=== PATIENT | male | born 1950 | race Caucasian/White ===

== ENCOUNTER 2018-07-25 09:32 | Day surgery (SDC) | payer BC, MEDICARE ==
[~2018-07-25 09:32] MED LIST: ACETAZOLAMIDE 250 MG TABLET PO ONE; Ak-Dilate OPHTHALMIC*** 1.065 ML, Cyclogyl 1% OPHTH SOL 5 ML 1.065 ML, GATIFLOXACIN 0.5... OP ONE; Lactated Ringers 1,000 ML IV ONE; Lactated Ringers 1,000 ML IV SCH; TETRACAINE 0.5% STERI-UNIT SOL OP ONE; Zofran 4 MG/2 ML VIAL IV PRN
[2018-07-25] MEDS ORDERED: Versed 2 MG/2 ML Injection IV ONE (09:33)
[2018-07-25] MEDS ORDERED: DIPRIVAN 200 MG/20 ML IV ONE ×2 (09:33)
[2018-07-25] MEDS ORDERED: BETADINE 5% OPHTHALMIC 30 ML OP ONE (10:00)
[2018-07-25] MEDS ORDERED: BSS 500 ML, Fortaz/Tazicef 1 GM** 0.2 G IO ONE ×2 (10:00)
[2018-07-25] MEDS ORDERED: LIDOCAINE HCL 1% AMPUL 5 ML IJ ONE (10:00)
[2018-07-25] MEDS ORDERED: Epinephrine Preservative Free 1 MG/ML INTRAOP ONE (10:00)
[2018-07-25 11:46] VITALS: O2SAT 91
[2018-07-25 12:14] VITALS: BP 143/78; PULSE 52
--- NOTE | 2018-07-25 15:25 | OP ---
DATE/TIME OF OPERATION: 07/25/2018 1045 TIME DICTATED: 1146 PREOPERATIVE DIAGNOSIS: Senile cataract of left eye. POSTOPERATIVE DIAGNOSIS: Senile cataract of left eye. SURGEON: Chapito Brown MD WATER RESOURCE ENGINEER: None. OPERATION: Cataract extraction of left eye with an intraocular lens implant. STANDARD __X___ COMPLEX ANESTHESIA: MAC. ___X___ Monitored anesthesia care in combination with topical and intra-cameral anesthesia (because of the established specific risk of reflux, arrhythmias, or an anxiety attack associated with ocular manipulation as well as difficulty of the make up operator to manage such potentially catastrophic events while simultaneously attempting to complete the surgical procedure, it was deemed necessary for the patient's safety to have an anesthesiologist or a nurse printing estimator present during the procedure whenever possible. The anesthesiologist or the nurse printing estimator was utilized to monitor and regulate the intravenous sedation of the patient, so the patient was cooperative, relaxed, and comfortable). Topical anesthesia using Tetracaine eye drops together with intra cameral anesthesia using Lidocaine 1% MPF. The nurse was utilized to monitor the patient. ANESTHESIA PROVIDER: Naren Jones CRNA. COMPLICATIONS: None. BLOOD LOSS: None. INDICATIONS: The patient is undergoing cataract surgery in the hopes of eliminating the visual complaints and difficulty. PROCEDURE: After arriving at the facility's outpatient surgery area, an IV was started; the patient was given 5 mg of p.o. Versed. (If an anesthesia provider was not monitoring the patient) The patient was then given topical anesthetic Tetracaine eye drops. A cotton pellet was soaked into a solution of a combination of Zymaxid 0.5%, Ravi-Synephrine 2.5% and Ocufen (other drops might have been substituted referenced in the patient's record). The pellet was inserted by the RN into the lower conjunctival cul-de-sac with a sterile forceps and left for 20 minutes. The pellet was then removed by the RN with a sterile forceps before taking the patient to the operating room. The preoperative area nurse identified the patient and marked the correct eye to be operated on. I identified the correct eye to be operated on and marked it appropriately in the outpatient surgery area. The patient was then taken into the operating room. Tetracaine eye drops were installed again in the correct eye. The eyelids and the lashes and the lid margins were scrubbed with Betadine solution. One drop of the diluted Betadine solution was placed in the conjunctival cul-de-sac for 45 seconds and then was irrigated. A drop of Tetracaine Gel was placed in the conjunctival cul-de-sac. The patient's forehead was taped to secure it during the procedure. The patient was monitored. The patient was then draped in the usual way for this procedure. An eye speculum was used to separate the eyelids. The eye was then fixated and a temporal 2.5 mm incision was made in the clear cornea temporally at the limbus. Through the incision, 0.25 cc of 1% non-preserved lidocaine was injected into the anterior chamber for intracameral anesthesia. The anterior chamber was then filled with viscoelastic. The pupil was small. I felt that it would be safer to mechanically dilate the pupil. A Malyugin ring was used at this point which dilated the pupil. That was removed at the end of the procedure prior to aspiration of the viscoelastic from the anterior chamber and posterior to the intraocular lens implant. The cataract had a great amount of cortical changes. That rendered seeing the anterior capsule difficult for a safe performance of an anterior capsulotomy. I injected an air bubble into the anterior chamber. I then injected 1 ML of vision blue solution into the anterior chamber. The vision blue solution was irrigated from the anterior chamber after 30 seconds. The anterior capsule was stained which facilitated performing the anterior capsulotomy safely. After that was completed, a cystotome was introduced into the anterior chamber and a round anterior capsulotomy was performed. The capsule was removed by a forceps. Hydrodissection was next carried utilizing a 25-gauge cannula and balanced salt solution to delineate the cortical material from the capsule and the nucleus from the cortical material. The nucleus was rotated freely into the capsular bag with no difficulty. The phaco tip of the [facility] Phacoemulsifier was introduced into the anterior chamber and two grooves were made into the nucleus 90 degrees apart. Using two spatulas resulted into the nucleus being fractured into four quadrants. The phaco tip was then used to remove each quadrant of the nucleus. Viscoelastic was used during this process to protect the corneal endothelium. Once the entire nucleus was removed, the phaco tip then was removed and the irrigation tip was introduced into the eye and the cortex was removed. The posterior capsule was polished. It was noticed that there was a tear into the posterior capsule with few vitreous strands into the pupil plan. An anterior vitrectomy was performed. A 17.00 diopter, [id number], posterior chamber lens implant, was inspected and found to be grossly normal. The implant was inserted into the implant injector cartridge; Viscoelastic again was introduced into the anterior chamber, which filled the capsular bag. The implant injector's cartridge tip was placed at the limbal wound and the posterior chamber implant was released into the capsular bag and rotated appropriately. The implant was found to be into the capsular bag and it was centered. __X__ 0.2 ml of Tri-Moxi was introduced via 27 gauge cannula into the vitreous cavity through the ciliary processes. Viscoelastic was aspirated from the anterior chamber and posterior to the intraocular lens implant from the capsular bag using the irrigating tip. The anterior chamber was irrigated and filled with 5 cc antibiotic solution (500 cc of BSS plus 2 ml of Fortaz 100 mg/ml) ( if patient was not allergic to the medication). The lips of the corneal incision were hydrated using BSS solution. The anterior chamber was checked and found to be water tight. One drop each of antibiotic, steroid and NSAID drops (refer to chart for drops used) were placed in the conjunctival cul-de-sac of the operated eye. Patient tolerated the procedure quite well and left the operating room in satisfactory condition. DISCHARGE SUMMARY: The patient was released in stable condition. The patient and those with the patient were given an instruction sheet as of how to care for the eye after surgery as well as counseling on any abnormal laboratory studies by the postoperative RN. The patient was also given an appointment card for follow-up in the office and is to call immediately for any difficulties including but not limited to pain in the eye, decreased vision, discharge from the eye, headache and or fever. DISCHARGE DIAGNOSIS: Pseudophakia of left eye.
== END 2018-07-25 12:15 | disposition home or self-care (01) ==
LOC: SDC 09:32
PROVIDERS: ATTEND Ophthalmology
DX: H25.9 Unspecified age-related cataract (principal); I10 Essential (primary) hypertension; E78.00 Pure hypercholesterolemia, unspecified; F32.9 Major depressive disorder, single episode, unspecified
CPT/HCPCS: 94250; C1780; J0171; J2250; J2704; A9270-GY

== ENCOUNTER 2022-12-15 05:46 | Day surgery (SDC) | payer BC, MEDICARE ==
[2022-12-15] MEDS ORDERED: Lactated Ringers 1,000 ML IV ONE (06:10)
[2022-12-15] MEDS ORDERED: Lactated Ringers 1,000 ML IV SCH (07:00)
[2022-12-15] MEDS ORDERED: Xopenex 1.25 MG/0.5 ML UD NEBULE IH ONE (07:07)
[2022-12-15] MEDS ORDERED: Sodium Chloride 3 ML UD NEBULES IH ONE (07:07)
[2022-12-15 07:17] LABS: ANION GAP 9.4 MEQ/L (5-15); BLOOD UREA NITROGEN 10 mg/dL (9-20); CHLORIDE 104 mmol/L (98-107); Calcium 8.1 mg/dL (8.4-10.2); Carbon Dioxide 31 mmol/L (22-30); Creatinine 1 0.67 mg/dL (0.66-1.25); EST GLOMERULAR FILTRATION RATE > 60.0 ML/MIN; Glucose 134 mg/dL (74-106); NT PRO BNPII 110 pg/mL (<300); Potassium 3.9 mmol/L (3.5-5.1); SODIUM 140 mmol/L (137-145)
[2022-12-15] MEDS ORDERED: Xylocaine-Mpf 2% 5 Ml Vial ONE (07:56)
[2022-12-15] MEDS ORDERED: DIPRIVAN 200 MG/20 ML IV ONE (07:56)
[2022-12-15] MEDS ORDERED: Ketamine HCl 50 MG/ML ONE (07:57)
[2022-12-15] MEDS ORDERED: Versed 2 MG/2 ML Injection ONE (07:57)
[2022-12-15 09:24] VITALS: O2SAT 92
[2022-12-15 09:31] VITALS: BP 144/72; PULSE 74
--- NOTE | 2022-12-15 10:28 | OP ---
SURGERY DATE/TIME: 12/15/2022 0759 PREOPERATIVE DIAGNOSIS: Change in bowel habits. POSTOPERATIVE DIAGNOSES: 1) Normal colon. 2) Diverticulosis. PROCEDURE: Diagnostic colonoscopy. SURGEON: Llody Jenkins M.D. ANESTHESIA: MAC by Zane Balderas CRNA. ESTIMATED BLOOD LOSS: None. SPECIMENS: None. DESCRIPTION OF PROCEDURE: After informed written consent was obtained, the patient was taken to the endoscopy suite. Anesthesia was titrated to desired level of consciousness. Digital rectal exam showed normal sphincter tone and no internal lesions. The scope was inserted into the rectum and sequentially the entire colonic mucosa was traversed. The level of cecum was reached and verified with direct visualization of the ileocecal valve. Upon withdrawal there was scattered diverticula but no other mucosal abnormalities. Prep was noted to be fair. Prior to withdrawal retroflexion was performed and showed no internal lesions. The scope was removed. The patient was transferred to the recovery room in good condition.
== END 2022-12-15 09:33 | disposition home or self-care (01) ==
LOC: SDC 05:46
PROVIDERS: ATTEND Family Medicine
DX: K57.30 Diverticulosis of large intestine without perforation or abscess without bleeding (principal); R19.4 Change in bowel habit; I10 Essential (primary) hypertension; Z86.79 Personal history of other diseases of the circulatory system; J98.4 Other disorders of lung; Z79.899 Other long term (current) drug therapy
CPT/HCPCS: 36415; 80048; 83880; 93005; 99100; J2250; J2704; J7614; A9270-GY

== ENCOUNTER 2023-12-17 23:59 | Emergency (ER) | payer BC, MEDICARE ==
[2023-12-18 00:21] VITALS: RESP 22; TEMP 97.9
--- NOTE | 2023-12-18 00:30 | ERPHSYRPT ---
- History of Present Illness Time Seen by Provider: 12/18/23 00:18 Source: patient Exam Limitations: no limitations Patient Subjective Stated Complaint: pt states lower back pain for the past 3 days Triage Nursing Assessment: pt came into via wheelchair; pt transfer to cot per self; axo x3; c/o back pain; pt states 10/10 pain to lower back; good ROM to back; no respiratory distress; skin PDW; hypertensive Physician History: The patient, with a history of two back surgeries at L5 and S1, presents with severe lower back pain. The pain is located above the site of the previous surgeries and feels like nerve pain. The patient denies any new numbness or tingling in the legs, but reports a chronic numbness on the left side of his foot. The patient's pain has been managed with a fentanyl patch, which he feels is no longer effective. He reports withdrawal symptoms if the patch is not changed every three days. The patient's pain has worsened over the past week, with a significant increase in pain today, causing difficulty in movement. The patient denies any recent activities that may have exacerbated the pain. Timing/Duration: week(s) (1), worse Quality: radiating, sharp, stabbing, throbbing Back Pain Location: lumbar spine Back Pain Radiation: lower legs, feet Severity of Pain-Max: severe Severity of Pain-Current: severe Modifying Factors: Worsens With: movement Associated Symptoms: numbness in legs/feet, tingling in legs/feet, lower back pain, muscle spasms, No fever, No chills, No urinary incontinence, No loss of bowel control, No problems urinating, No weakness Previous symptoms: same symptoms as today Allergies/Adverse Reactions: adhesive tape Adverse Reaction (Unknown, Verified 12/18/23 00:07) Rash Home Medications: Fentanyl 75Mcg Patch [Duragesic 75 MCG Patch] 75 mcg TOP Q3D 02/13/12 [History] Simvastatin 40 mg [Zocor 40 mg] 40 mg PO DAILY 02/13/12 [History] lisinopriL [Zestril] 10 mg PO DAILY 07/17/18 [History] Albuterol 8 gm Mdi Hfa [Ventolin Hfa MDI] 1 puff IH QID PRN 11/24/22 [History] Desonide 1 dose TOP BID 11/24/22 [History] Fluticasone/Salmeterol [Advair 250-50 Diskus] 1 puff IH DAILY 11/24/22 [History] Furosemide 40 mg [Lasix 40 MG] 1 tablet PO DAILY 11/24/22 [History] Tiotropium Dows Inhaler [Spiriva 18 Mcg/Cap Inhaler] 2 puffs IH DAILY 11/24/22 [History] Aspirin EC 81 mg [Ecotrin 81 mg] 81 mg PO DAILY 12/18/23 [History] Venlafaxine HCl ER 75 mg [Effexor XR 75 MG] 150 mg PO DAILY 12/18/23 [History] Hx Tetanus, Diphtheria Vaccination/Date Given: Yes Hx Influenza Vaccination/Date Given: Yes Hx Pneumococcal Vaccination/Date Given: Yes Immunizations Up to Date: No Travel Risk - International Travel Have you traveled outside of the country in past 3 weeks: No - Emerging Infectious Disease Are you exhibiting symptoms associated with any current EIDs: No - Review of Systems All Other Systems: Reviewed and Negative - Past Medical History Pertinent Past Medical History: Yes Neurological History: No Pertinent History ENT History: No Pertinent History Cardiac History: High Cholesterol, Hypertension, Other Respiratory History: Asthma, COPD, Pneumonia, Sleep Apnea, Other Endocrine Medical History: No Pertinent History Musculoskeletal History: Degenerative Disk Disease, Osteoarthritis GI Medical History: Hemorrhoids History: No Pertinent History Psycho-Social History: No Pertinent History Male Reproductive Disorders: No Pertinent History Other Medical History: AT TIMES HE REPORTS LEFT SHOULDER PAIN THAT COMES AND GOES D/T O.A.; LUMBAR POST-LAMINECTOMY, BACK SURGERY X 2, CANCER SURGERY (2014 LYMPH NODES REMOVED FROM FACE AND NECK) CARDIAC SURGERY, KNEE SURGERY, CHRONIC HYPOXEMIC RESPIRATORY FAILURE - Past Surgical History Past Surgical History: Yes Neuro Surgical History: No Pertinent History Cardiac: Angioplasty, Cardiac Catheterization Respiratory: No Pertinent History Gastrointestinal: Other Genitourinary: No Pertinent History Musculoskeletal: Joint Replacement, Orthopedic Surgery Male Surgical History: No Pertinent History Other Surgical History: left hand(partial amputation index finger). back surgery x 2, uday total knees, total hip L, thoat CA surgery , states " rectal fistula surgery twice" - Social History Smoking Status: Current every day smoker How long have you smoked: 50 years+ Exposure to second hand smoke: Yes Drug Use: none Patient Lives Alone: No - Nursing Vital Signs Nursing Vital Signs: Initial Vital Signs Pulse Rate 92 H 12/18/23 00:07 Blood Pressure 147/106 12/18/23 00:07 O2 Sat by Pulse Oximetry 93 L 12/18/23 00:07 Pain Scale Pain Intensity [Lower Back] 10 Pain Intensity 6 - Physical Exam General Appearance: mild distress Back Exam: normal inspection, decreased range of motion, muscle spasm, point tenderness, No vertebral tenderness, No rash Neurologic Exam: alert, oriented x 3, cooperative Skin Exam: normal color, warm, dry, No rash SpO2: 93 O2 Delivery: Nasal Cannula Comments: Lumbar PE Tenderness: left paraspinal L2 (iliopsoas / mid anterior thigh sensation)= 5/5 : normal L3 (quadriceps / distal anterior thigh sensation)= 5/5 : normal L4 (tibialis anterior / patellar reflex / medial ankle sensation)= 5/5 : 2+ : normal L5 (EHL / dorsal foot sensation)= 5/5 : normal S1 (Peroneals / Achilles reflex / lateral ankle sensation)= 5/5 : 2+ : normal No quad tightness Clonus: neg Babinski: neg Seated SLR: pos Supine SLR: pos FADIR: neg YADI: neg - CT Exams Lumbar Spine CT Interpretation: Tele-radiologist Report (no acute findings, disc bulge L2,3 and L4,5, L5 S1 foraminal stenosis) Ordered Tests: Active Orders 24 hr Category Date Time Status LUMBAR SPINE W/O [CT] Stat Exams 12/18/23 00:30 Ordered CBC W DIFF Stat Lab 12/18/23 00:59 Completed CMP Stat Lab 12/18/23 00:59 Completed UA W/RFX UR CULTURE Stat Lab 12/18/23 01:53 Ordered Medication Summary Discontinued Medications Generic Name Dose Route Start Last Admin Trade Name Freq PRN Reason Stop Dose Admin Acetaminophen 975 mg 12/18/23 00:30 12/18/23 00:39 Acetaminophen 325 Mg Tablet PO 12/18/23 00:31 975 mg STAT ONE Administration Acetaminophen Confirm 12/18/23 00:38 Acetaminophen 325 Mg Tablet Administered 12/18/23 00:39 Dose 975 mg .ROUTE .STK-MED ONE Cyclobenzaprine HCl 10 mg 12/18/23 00:30 12/18/23 00:39 Cyclobenzaprine Hcl 10 Mg Tablet PO 12/18/23 00:31 10 mg STAT ONE Administration Cyclobenzaprine HCl Confirm 12/18/23 00:38 Cyclobenzaprine Hcl 10 Mg Tablet Administered 12/18/23 00:39 Dose 10 mg .ROUTE .STK-MED ONE Dexamethasone Sodium Phosphate 10 mg 12/18/23 00:30 12/18/23 00:40 Dexamethasone Sod Phosphate 10 Mg/Ml IM 12/18/23 00:31 10 mg STAT ONE Administration Dexamethasone Sodium Phosphate Confirm 12/18/23 00:38 Dexamethasone Sod Phosphate 10 Mg/Ml Administered 12/18/23 00:39 Dose 10 mg .ROUTE .STK-MED ONE Ketorolac Tromethamine 60 mg 12/18/23 00:30 12/18/23 00:39 Ketorolac Tromethamine 30 Mg/Ml Inj IM 12/18/23 00:31 60 mg STAT ONE Administration Ketorolac Tromethamine Confirm 12/18/23 00:38 Ketorolac Tromethamine 30 Mg/Ml Inj Administered 12/18/23 00:39 Dose 60 mg .ROUTE .STK-MED ONE Lab/Rad Data: Laboratory Result Diagrams 12/18/23 00:59 12/18/23 00:59 Laboratory Results 12/18/23 12/18/23 Range/Units 00:59 00:59 WBC 11.6 H (4.0-10.5) x10^3/uL RBC 4.31 (4.1-5.6) x10^6/uL Hgb 14.0 (12.5-18.0) g/dL Hct 40.6 L (42-50) % MCV 94.2 (78-100) fL MCH 32.5 H (26-32) pg MCHC 34.5 (32-36) g/dL RDW 12.7 (11.5-14.0) % Plt Count 247 (150-450) x10^3/uL MPV 9.8 (7.5-11.0) fL Gran % 68.5 H (36.0-66.0) % Immature Gran % (Auto) 0.3 (0.00-0.4) % Nucleat RBC Rel Count 0.0 (0.00-0.1) % Eos # (Auto) 0.18 (0-0.5) x10^3/uL Immature Gran # (Auto) 0.04 H (0.00-0.03) x10^3u/L Absolute Lymphs (auto) 2.74 (1.0-4.6) x10^3/uL Absolute Monos (auto) 0.66 (0.0-1.3) x10^3/uL Absolute Nucleated RBC 0.00 (0.00-0.01) x10^3u/L Lymphocytes % 23.6 L (24.0-44.0) % Monocytes % 5.7 (0.0-12.0) % Eosinophils % 1.6 (0.00-5.0) % Basophils % 0.3 (0.0-0.4) % Absolute Granulocytes 7.94 H (1.4-6.9) x10^3/uL Basophils # 0.04 (0-0.4) x10^3/uL Sodium 137 (135-145) mmol/L Potassium 3.8 (3.5-5.1) mmol/L Chloride 100 (98-107) mmol/L Carbon Dioxide 29 (22-30) mmol/L Anion Gap 11.1 (5-15) MEQ/L BUN 16 (9-20) mg/dL Creatinine 0.95 (0.66-1.25) mg/dL Estimated GFR 85.0 ML/MIN Glucose 129 H (74-106) mg/dL Calcium 8.4 (8.4-10.2) mg/dL Total Bilirubin 0.40 (0.2-1.3) mg/dL AST 23 (17-59) U/L ALT 16 (0-50) U/L Alkaline Phosphatase 83 (38-126) U/L Serum Total Protein 7.3 (6.3-8.2) g/dL Albumin 4.0 (3.5-5.0) g/dL - Progress Progress: improved Progress Note: Pain improved, labs wnl, UA neg. CT shows no acute pathology, chronic findings noted. Will send Prednisone 50mg QD x 5 days. Recommend f/u with pain management to discuss interventional procedures. Counseled pt/family regarding: lab results, diagnosis, need for follow-up, rad results Medical Desision Making - Diagnostic Testing Diagnostic test were ordered, analyzed, and reviewed by me: Yes Radiological Interpretation: Interpreted by me, Reviewed by me, Teleradiologist Report - Risk of complications The pt has a mod risk of morbidity or mortality based on: Need for prescription drug management - Departure Departure Disposition: Home Clinical Impression: DDD (degenerative disc disease), lumbar, Lumbar radiculopathy, Intractable back pain, Foraminal stenosis of lumbar region Condition: Good Critical Care Time: No Referrals: SKYLAR MCGRATH MD [Primary Care Provider] - Follow up/PCP as directed Instructions: Low Back Pain (DC) Prescriptions: predniSONE [Prednisone] 50 mg PO DAILY #5 tablet
[2023-12-18] MEDS ORDERED: TYLENOL 325 MG ONE (00:38)
[2023-12-18] MEDS ORDERED: TORAdol 30 mg Injection ONE (00:38)
[2023-12-18] MEDS ORDERED: DECADRON 10MG INJ. ONE (00:38)
[2023-12-18] MEDS ORDERED: Cyclobenzaprine 10 MG ONE (00:38)
[2023-12-18] MEDS: TYLENOL 325 MG PO ONE (00:39)
[2023-12-18] MEDS: TORAdol 30 mg Injection IM ONE (00:39)
[2023-12-18] MEDS: Cyclobenzaprine 10 MG PO ONE (00:39)
[2023-12-18] MEDS: DECADRON 10MG INJ. IM ONE (00:40)
[2023-12-18 01:01] LABS: Absolute Neutrophil Ct (ANC) 7.94 x10^3/uL (1.4-6.9); BASOPHIL % 0.3 % (0.0-0.4); Basophil (Absolute #) 0.04 x10^3/uL (0-0.4); Eosinophil % 1.6 % (0.00-5.0); Eosinophil (Absolute #) 0.18 x10^3/uL (0-0.5); Hematocrit 40.6 % (42-50); IMMATURE GRAN # 0.04 x10^3u/L (0.00-0.03); IMMATURE GRAN % 0.3 % (0.00-0.4); Lymphocyte (Absolute #) 2.74 x10^3/uL (1.0-4.6); Lymphocytes % 23.6 % (24.0-44.0); Mean Cell Volume 94.2 fL (78-100); Mean Corpuscular Hemoglobin 32.5 pg (26-32); Mean Corpuscular Hgb Concent. 34.5 g/dL (32-36); Mean Platelet Volume 9.8 fL (7.5-11.0); Monocyte (Absolute #) 0.66 x10^3/uL (0.0-1.3); Monocytes % 5.7 % (0.0-12.0); Neutrophil % 68.5 % (36.0-66.0); Platelet Count 247 x10^3/uL (150-450); Red Blood Count 4.31 x10^6/uL (4.1-5.6); Red Cell Distribution Width 12.7 % (11.5-14.0); White Blood Count 11.6 x10^3/uL (4.0-10.5)
[2023-12-18 01:14] LABS: ANION GAP 11.1 MEQ/L (5-15); BILIRUBIN,TOTAL 0.4 mg/dL (0.2-1.3); Calcium 8.4 mg/dL (8.4-10.2); Creatinine 1 0.95 mg/dL (0.66-1.25); Potassium 3.8 mmol/L (3.5-5.1); Total Protein 7.3 g/dL (6.3-8.2)
[2023-12-18 02:02] VITALS: PULSE 75
[2023-12-18 02:07] LABS: Appearance Clear (Clear); Bacteria None Seen /HPF (None Seen); Bilirubin Negative (Negative); Blood Negative (Negative); Epithelial Cells None Seen /HPF (None Seen); Glucose, Urine Negative (Negative); Hyaline Casts NONE SEEN /LPF (0-2); Ketones Negative (Negative); Leukocyte Esterase Negative (Negative); Nitrite Negative (Negative); Ph 5.5 (4.6-8.0); Protein,Urine Dip Trace (Negative); RBC 0-2 /HPF (0-5); WBC 0-2 /HPF (0-5)
[2023-12-18 02:09] LABS: ADD URINE CULTURE? NO (NO)
[2023-12-18 02:31] VITALS: O2SAT 93
[2023-12-18 02:44] VITALS: BP 117/68
--- NOTE | 2023-12-19 09:20 | XRAY ---
CLINICAL HISTORY: radicular back pain, hx of fusion COMPARISON: None. TECHNIQUE: CT scan of lumbar spine done. Axial images were obtained with reformatted coronal and sagittal images and submitted for interpretation. One of the following dose reduction techniques were utilized for this exam: Automated exposure control, adjustment of the mA and/or kV according to patient size, and use of iterative reconstruction. CTDI: 58.31 mGy, DLP: 1796 mGy-m. FINDINGS: Relatively straightened lumbar curve. Evidence of fusion of L4 and L5 with L4/5 disc cage insertion with internal fixation of their spinous processes by plates and screws producing beam hardening artifacts. No device break, loosening or active osseous infection. Diffuse osteopenic texture of the examined bones. Mild retrolisthesis of L5 over S1 vertebra. Mild wedging of D12 and to a lesser extent L1 are seen. Lumbar spondylosis evident by marginal lipping of the opposing vertebral endplates with markedly reduced L5/S1 disc. No definite fractures could be detected. Segmental disc analysis level by level: L1- L2: There is no significant disc herniation or neural foraminal narrowing visualized. Central canal is unremarkable. No sign of lateral recess stenosis. Nerve roots are normal. L2- L3: There is a diffuse disc bulge seen indenting the anterior thecal sac and causing severe lateral recesses and neural foraminal stenosis resulting in impingement on exiting nerve roots. No significant spinal canal stenosis noted. L3- L4: There is a diffuse disc bulge seen indenting the anterior thecal sac and causing severe lateral recesses and neural foraminal stenosis resulting in impingement on exiting nerve roots. No significant spinal canal stenosis noted. L4- L5: Cannot be properly assessed due to beam hardening artifacts. L5- S1: There is posterior disc protrusion showing annular calcifications seen indenting the anterior thecal sac and causing along with bilateral facets arthropathy severe lateral recesses and neural foraminal stenosis resulting in impingement on exiting nerve roots. No significant spinal canal stenosis noted. No retro paraspinal soft tissue masses. No developmental canal stenosis. Atherosclerosis of the aorta showing infra-renal anterior outpouching; christianoley small focal aneurysm measuring 2 x 2 cm. There is evidence of left hip replacement with metallic screw traversing left iliac bone. IMPRESSION: 1. No acute finding. 2. Evidence of fusion of L4 and L5 with L4/5 disc cage insertion with internal fixation of their spinous processes by plates and screws. No device break, loosening or active osseous infection. 3. Relatively straightned lumbar curve. 4. Diffuse osteopenic texture of the examined bones. 5. Mild retrolisthesis of L5 over S1 vertebra. 6. Mild wedging of D12 and to a lesser extent L1 are seen. 7. L2-3 and L4-5 diffuse disc bulges. 8. L5-S1: There is posterior disc protrusion showing annular calcifications seen causing along with bilateral facets arthropathy severe lateral recesses and neural foraminal stenosis resulting in impingement on exiting nerve roots. 9. Lumbar spondylosis. 10. A small infra renal aortic aneurysm. 11. Better assessment by MRI study is advised. Electronically Signed by: Dejon Moya MD. (12/18/2023 02:16:51 EDT)
== END 2023-12-18 02:55 | disposition home or self-care (01) ==
LOC: ED 23:59
DX: M51.36 Other intervertebral disc degeneration, lumbar region (principal); M48.061 Spinal stenosis, lumbar region without neurogenic claudication; M54.16 Radiculopathy, lumbar region; M54.50 Low back pain, unspecified; E78.5 Hyperlipidemia, unspecified; I10 Essential (primary) hypertension; Z79.891 Long term (current) use of opiate analgesic; Z79.52 Long term (current) use of systemic steroids; Z79.899 Other long term (current) drug therapy; Z72.0 Tobacco use
CPT/HCPCS: 36415; 72131; 80053; 81001; 85025; 96372; 99284; J1100; J1885; A9270-GY

== ENCOUNTER 2024-03-14 12:10 | Day surgery (SDC) | payer BC, MEDICARE ==
[2024-03-14] MEDS ORDERED: Depo-Medrol 40 MG/ML IM ONE (12:11)
[2024-03-14] MEDS ORDERED: Xylocaine-Mpf 2% 5 Ml Vial IJ ONE (12:11)
[2024-03-14] MEDS ORDERED: LIDOCAINE HCL 1% 50 MG/5 ML VL PF IJ ONE (12:11)
[2024-03-14] MEDS ORDERED: Lactated Ringers 1,000 ML IV ONE (14:35)
[2024-03-14] MEDS ORDERED: Versed 2 MG/2 ML Injection ONE (14:51)
[2024-03-14] MEDS ORDERED: DEXMEDETOMIDINE 80 MCG/20ML-NS IV ONE (14:51)
--- NOTE | 2024-03-14 15:15 | XRAY ---
Indication: Bilateral L4-S1 MBB. Intraoperative fluoroscopy provided for 31 seconds. 6 digital spot image submitted for interpretation demonstrates posterior needle tips projecting over expected left and right L4-S1 nerve roots. Correlate with intraoperative findings/report. Incidental L4-L5 spinous process fusion hardware
--- NOTE | 2024-03-14 15:17 | XRAY ---
31 seconds of fluoroscopy was used in surgery for a bilateral L4-S1 MBB.
== END 2024-03-14 15:26 | disposition home or self-care (01) ==
LOC: SDC-PAIN 12:10
PROVIDERS: ATTEND Psychiatry & Neurology Pain Medicine
DX: M47.816 Spondylosis without myelopathy or radiculopathy, lumbar region (principal)
CPT/HCPCS: 64493; 64494; 72020; 77002; J2001; J2250

== ENCOUNTER 2024-05-09 09:03 | Day surgery (SDC) | payer BC, MEDICARE ==
[2024-05-09] MEDS ORDERED: BUPIVACAINE 0.5% VIAL IJ ONE (09:04)
[2024-05-09] MEDS ORDERED: Depo-Medrol 40 MG/ML IM ONE (09:04)
[2024-05-09] MEDS ORDERED: Versed 2 MG/2 ML Injection ONE (13:03)
--- NOTE | 2024-05-09 13:37 | XRAY ---
Indication: Bilateral L4-S1 MBB. Intraoperative fluoroscopy provided 29 seconds. Single digital spot image submitted for interpretation demonstrates posterior needle tips projecting over the expected left and right L4-S1 nerve roots. Correlate with intraoperative findings/report. Incidental L4-L5 spinous process fusion hardware.
[2024-05-09] MEDS ORDERED: Lactated Ringers 1,000 ML IV ONE (14:47)
--- NOTE | 2024-05-09 15:00 | XRAY ---
29 seconds of fluoroscopy was used in surgery for a bilateral L4-S1 MBB.
== END 2024-05-09 13:38 | disposition home or self-care (01) ==
LOC: SDC-PAIN 09:03
PROVIDERS: ATTEND Psychiatry & Neurology Pain Medicine
DX: M47.816 Spondylosis without myelopathy or radiculopathy, lumbar region (principal)
CPT/HCPCS: 64493; 64494; 72020; 77002; J2250

== ENCOUNTER 2024-06-06 12:36 | Day surgery (SDC) | payer BC, MEDICARE ==
[2024-06-06] MEDS ORDERED: Depo-Medrol 40 MG/ML IM ONE (12:37)
[2024-06-06] MEDS ORDERED: BUPIVACAINE 0.5% VIAL IJ ONE (12:37)
[2024-06-06] MEDS ORDERED: LIDOCAINE HCL 1% AMPUL 5 ML IJ ONE (12:37)
--- NOTE | 2024-06-06 16:22 | XRAY ---
Indication: Right L4-S1 RFA. Intraoperative fluoroscopy provided for 32 seconds. 4 digital spot image submitted for interpretation demonstrates posterior needle tips projecting over the expected right L4-S1 nerve roots. Correlate with intraoperative findings/report. Incidental L4-L5 fusion hardware.
--- NOTE | 2024-06-06 16:30 | XRAY ---
32 seconds of fluoroscopy was used in surgery for a right L4-S1 RFA.
== END 2024-06-06 15:10 | disposition home or self-care (01) ==
LOC: SDC-PAIN 12:36
PROVIDERS: ATTEND Psychiatry & Neurology Pain Medicine
DX: M47.816 Spondylosis without myelopathy or radiculopathy, lumbar region (principal)
CPT/HCPCS: 64635; 64636; 72100; 77002; 99100

== ENCOUNTER 2024-06-07 12:33 | Day surgery (SDC) | payer BC, MEDICARE ==
[~2024-06-07 12:33] MED LIST changes: -ACETAZOLAMIDE 250 MG TABLET PO ONE; -Ak-Dilate OPHTHALMIC*** 1.065 ML, Cyclogyl 1% OPHTH SOL 5 ML 1.065 ML, GATIFLOXACIN 0.5... OP ONE; +DIPRIVAN 200 MG/20 ML IV ONE; -Lactated Ringers 1,000 ML IV ONE; -Lactated Ringers 1,000 ML IV SCH; -TETRACAINE 0.5% STERI-UNIT SOL OP ONE; +Versed 2 MG/2 ML Injection ONE; -Zofran 4 MG/2 ML VIAL IV PRN
[2024-06-07] MEDS ORDERED: BUPIVACAINE 0.5% VIAL IJ ONE (12:34)
[2024-06-07] MEDS ORDERED: Depo-Medrol 40 MG/ML IM ONE (12:34)
[2024-06-07] MEDS ORDERED: LIDOCAINE HCL 1% AMPUL 5 ML IJ ONE (12:34)
[2024-06-07] MEDS ORDERED: DIPRIVAN 200 MG/20 ML IV ONE (13:58)
[2024-06-07] MEDS ORDERED: Versed 2 MG/2 ML Injection ONE (13:58)
--- NOTE | 2024-06-07 15:01 | XRAY ---
Indication: Left L4-S1 RFA. Intraoperative fluoroscopy provided for 18 seconds. 4 digital spot image submitted for interpretation demonstrates posterior needle tips projecting over the expected left L4-S1 nerve roots. Correlate with intraoperative findings/report. Incidental L4-L5 fusion hardware.
--- NOTE | 2024-06-07 16:44 | XRAY ---
18 seconds of fluoroscopy was used in surgery for a left L4-S1 RFA.
== END 2024-06-07 14:34 | disposition home or self-care (01) ==
LOC: SDC-PAIN 12:33
PROVIDERS: ATTEND Psychiatry & Neurology Pain Medicine
DX: M47.817 Spondylosis without myelopathy or radiculopathy, lumbosacral region (principal)
CPT/HCPCS: 36415; 64635; 64636; 72100; 77002; 80053; 80061; 83036; 83721; 85027; 99100; G0103; J2250; J2704

== ENCOUNTER 2024-09-12 09:29 | Day surgery (SDC) | payer BC, MEDICARE ==
[2024-09-12] MEDS ORDERED: propofoL IV ONE (10:53)
--- NOTE | 2024-09-12 12:04 | XRAY ---
17 seconds of fluoroscopy was used in surgery for a left L3-L5 transforaminal ABY.
--- NOTE | 2024-09-12 12:08 | XRAY ---
Indication: Left L3-L5 transforaminal ABY. Intraoperative fluoroscopy provided for 17 seconds. 4 digital spot images submitted for interpretation demonstrates posterior needle tips projecting over expected left L3 and L4 nerve roots. Small amount of contrast injected for needle tip placement. Correlate with intraoperative findings/report. Incidental L4-L5 spinous process fusion hardware.
== END 2024-09-12 11:28 | disposition home or self-care (01) ==
LOC: SDC-PAIN 09:29
PROVIDERS: ATTEND Psychiatry & Neurology Pain Medicine
DX: M54.16 Radiculopathy, lumbar region (principal)
CPT/HCPCS: 72100; 77003; J2704

== ENCOUNTER 2024-10-18 11:10 | Day surgery (SDC) | payer BC, MEDICARE ==
[2024-10-18] MEDS ORDERED: Sodium Chloride 0.9(Preservative Free) 10 ML IJ ONE (11:11)
[2024-10-18] MEDS ORDERED: LIDOCAINE HCL 1% 50 MG/5 ML VL IJ ONE (11:11)
[2024-10-18] MEDS ORDERED: methylPREDNISolone acetate IM ONE (11:11)
[2024-10-18] MEDS ORDERED: propofoL IV ONE (13:33)
--- NOTE | 2024-10-18 14:20 | XRAY ---
Indication: Lumbar ABY. Intraoperative fluoroscopy provided for 27 seconds. 5 digital spot images submitted for interpretation demonstrates posterior needle tip projecting posterior to lumbosacral junction. Small amount of contrast injected for needle tip placement. Correlate with intraoperative findings/report. Incidental L4-L5 spinous process fusion hardware
--- NOTE | 2024-10-18 14:52 | XRAY ---
27 seconds of fluoroscopy was used in surgery for a lumbar ABY.
== END 2024-10-18 14:10 | disposition home or self-care (01) ==
LOC: SDC-PAIN 11:10
PROVIDERS: ATTEND Psychiatry & Neurology Pain Medicine
DX: M54.16 Radiculopathy, lumbar region (principal)
CPT/HCPCS: 62323; 72100; 77003; J1010; J2704; Q9966